=== PATIENT | female | born 1985 ===

== ENCOUNTER 2023-01-22 07:07 | Day surgery (SDC) | payer OTHER ==
[~2023-01-22] VITALS: Ht 175.3 cm; Wt 77.1 kg
[~2023-01-22 07:07] MED LIST: CRYSELLE-28 TA1 EACH PO
[2023-01-22] MEDS ORDERED: IBU800 MG PO (16:00)
[2023-01-22] MEDS ORDERED: NEURONTIN300 MG PO (16:00)
== END 2023-01-22 18:10 | disposition home or self-care (01) ==
LOC: CIR.AMB 07:07 → OB/GYN 08:30 → CIR.AMB 08:30 → EDSTATUS 08:30 → CIR.AMB 08:45
PROVIDERS: ATTEND Obstetrics & Gynecology Gynecology
DX: D27.0 Benign neoplasm of right ovary (principal); D27.1 Benign neoplasm of left ovary; Z20.822 Contact with and (suspected) exposure to COVID-19